=== PATIENT | male | born 1960 | race Caucasian/White ===

== ENCOUNTER → 2017-06-14 | Outpatient (CLI) | payer OTHER ==
[~2017-06-14] MED LIST: AMBIEN12.5 MG PO; CLONAZEPAM0.5 M1 PO; IBUPROFEN400 MG PO; KEPPRA 500 MG500 MG PO
[2017-06-14 12:59] LABS: HEMOGLOBIN 17.1 g/dL (14.1-18.0); LYMPH # 2.3 K/mm3 (0.7-4.5)
[2017-06-14 15:13] LABS: BUN 14 mg/dL (7-18); GFR (ESTIMATED) 52 ML/MIN (>60)
[2017-06-15 10:40] LABS: Folate (Folic Acid) 18.3 ng/mL (>3.0)
== END ==
LOC: LAB 12:26
PROVIDERS: Family Medicine
DX: G43.909 Migraine, unspecified, not intractable, without status migrainosus (principal); M54.2 Cervicalgia; E66.9 Obesity, unspecified; Z87.898 Personal history of other specified conditions